=== PATIENT | female | born 1980 | race Caucasian/White ===

== ENCOUNTER → 2016-05-18 | Outpatient (CLI) | payer OTHER ==
[2014-09-01 21:40] VITALS: BP 140/73
--- NOTE | 2016-05-18 12:21 | KCIC ---
Examination: Two views of the chest. HISTORY History of cough, fatigue, shortness of breath COMPARISON None available. FINDINGS The cardiomediastinal silhouette grossly appears unremarkable. There is no acute infiltrate or visualized pneumothorax identified. Impression: No acute cardiopulmonary findings. Electronically signed by: Tony Guerra (May 18, 2016 12:20:11)
== END | disposition home or self-care (01) ==
LOC: KCIC 11:51
PROVIDERS: ATTEND Nurse Practitioner Family
DX: R05 Cough (principal); R53.83 Other fatigue
CPT/HCPCS: 71020

== ENCOUNTER 2016-07-17 16:13 | Emergency (ER) | payer OTHER ==
[2016-07-17 16:31] VITALS: BP 115/75
[2016-07-17] MEDS ORDERED: LIDOCAINE 1% / SOD BICARB 8.4% 20 ML VIAL. IJ ONE (17:00)
[2016-07-17] MEDS ORDERED: HYDR-971 PO (17:55)
--- NOTE | 2016-07-17 17:55 | PHYS DOC ---
Past Medical History Past Medical History: No Pertinent History Past Surgical History: Tubal ligation Alcohol Use: Heavy Drug Use: None Adult General Chief Complaint Chief Complaint: LACERATION/AVULSION [facility] HPI Patient is a 35 year old female complaining of a laceration to her left lower leg that occurred approximately 1 hour prior to arrival. Patient states that she was trying to negotiate some filled debris when she cut her leg on a stump that had been chewed by a [place]. Patient denies any additional injuries or concerns at this time. She reports tetanus shot is up-to-date. Review of Systems Review of Systems Constitutional: Denies fever or chills [] Eyes: Denies change in visual acuity, redness, or eye pain [] HENT: Denies nasal congestion or sore throat [] Respiratory: Denies cough or shortness of breath [] Cardiovascular: No additional information not addressed in HPI [] GI: Denies abdominal pain, nausea, vomiting, bloody stools or diarrhea [] : Denies dysuria or hematuria [] Musculoskeletal: Denies back pain or joint pain [] Integument: Denies rash or skin lesions [] Neurologic: Denies headache, focal weakness or sensory changes [] Endocrine: Denies polyuria or polydipsia [] Current Medications Current Medications Current Medications Medications (Trade) Dose Ordered Sig/Jose Start Time Stop Time Status Last Admin Dose Admin Lidocaine/Sodium Bicarbonate (Buffered Lidocaine 1%) 20 ml 1X ONCE 07/17/16 17:00 07/17/16 17:01 DC 07/17/16 17:00 20 ML Allergies Allergies Allergies Coded Allergies Type Severity Reaction Last Updated Verified No Known Drug Allergies 09/01/14 No Physical Exam Physical Exam Constitutional: Well developed, well nourished, no acute distress, non-toxic appearance. [] HENT: Normocephalic, atraumatic, bilateral external ears normal, oropharynx moist, no oral exudates, nose normal. [] Eyes: PERRLA, EOMI, conjunctiva normal, no discharge. [] Neck: Normal range of motion, no tenderness, supple, no stridor. [] Cardiovascular:Heart rate regular rhythm, no murmur [] Lungs & Thorax: Bilateral breath sounds clear to auscultation [] Abdomen: Bowel sounds normal, soft, no tenderness, no masses, no pulsatile masses. [] Skin: 3.5 cm laceration to the medial aspect of left lower leg approximately 15 cm above the medial malleolus. Back: No tenderness, no CVA tenderness. [] Extremities: No tenderness, no cyanosis, no clubbing, ROM intact, no edema. [] Neurologic: Alert and oriented X 3, normal motor function, normal sensory function, no focal deficits noted. [] Psychologic: Affect normal, judgement normal, mood normal. [] Current Patient Data Vital Signs Vital Signs Date Time Temp Pulse Resp B/P Pulse Ox O2 Delivery O2 Flow Rate FiO2 07/17/16 16:31 97.9 100 18 98 Room Air 97.9 EKG EKG [] Radiology/Procedures Radiology/Procedures Procedure note: 3.5 cm laceration to the medial aspect of patient's left lower leg was anesthetized with 1% buffered lidocaine. Wound was cleansed with Betadine solution and rinsed with copious amounts of saline. Wound was explored for foreign bodies. No foreign bodies are found. Wound margins were approximated utilizing 4-0 nylon in a simple interrupted fashion of a single- layer closure for total of 6 stitches. Patient tolerated the procedure well. Course & Med Decision Making Course & Med Decision Making Pertinent Labs and Imaging studies reviewed. (See chart for details) [] Dragon Disclaimer Dragon Disclaimer This electronic medical record was generated, in whole or in part, using a voice recognition dictation system. Departure Departure Impression: Primary Impression: Laceration Disposition: 01 HOME, SELF-CARE Condition: IMPROVED Referrals: NON,STAFF (PCP) Patient Instructions: Laceration Care, Adult, [id number] Additional Instructions: 1. Stitches need to be removed in 7-10 days. 2. Review the discharge instructions provided for self-care and reasons to return the emergency department. 3. Follow-up with your primary care doctor for wound check and suture removal. Scripts Hydrocodone/Apap 5-325 ([place] 5-325 Tablet)1 Each Tablet1 Tab PO PRN Q6HRS PRN PAIN #10 TAB Prov:DEBBIE GAGE 07/17/16 DEBBIE GAGE Jul 17, 2016 17:55
== END 2016-07-17 18:14 | disposition home or self-care (01) ==
LOC: ER 16:13
DX: S81.812A Laceration without foreign body, left lower leg, initial encounter (principal); Z98.51 Tubal ligation status; W45.8XXA Other foreign body or object entering through skin, initial encounter; Y93.89 Activity, other specified; Y92.89 Other specified places as the place of occurrence of the external cause; Y99.8 Other external cause status
CPT/HCPCS: 12002; 99283-25

== ENCOUNTER → 2019-10-23 | Outpatient (CLI) | payer OTHER ==
[~2019-10-23] MED LIST: HYDR-3164 PO
== END | disposition home or self-care (01) ==
LOC: SPEC 13:05
PROVIDERS: ATTEND Obstetrics & Gynecology
DX: N89.8 Other specified noninflammatory disorders of vagina (principal)
CPT/HCPCS: Q0111